=== PATIENT | male | born 1950 | race Caucasian/White ===

== ENCOUNTER 2016-09-28 22:10 | Emergency (ER) | payer SELFPAY | END 2016-09-28 22:50 | disposition left against medical advice (07) | LOC: E/R 22:10 | DX: Z53.21 Procedure and treatment not carried out due to patient leaving prior to being seen by health care provider (principal) ==

== ENCOUNTER 2018-08-15 21:38 | Emergency (ER) | payer SELFPAY ==
[~2018-08-15] VITALS: Ht 172.7 cm; Wt 69.0 kg
[2018-08-15 21:45] VITALS: BP 144/67; PULSE 73; RESP 18; Ht 172.7 cm; Wt 69.0 kg
== END 2018-08-15 22:50 | disposition left against medical advice (07) ==
LOC: E/R 21:38
DX: Z53.21 Procedure and treatment not carried out due to patient leaving prior to being seen by health care provider (principal)
CPT/HCPCS: 93005